=== PATIENT | female | born 1950 | race Caucasian/White ===

== ENCOUNTER 2022-04-13 13:34 | Outpatient (CLI) | payer MEDICARE, OTHER, SELFPAY ==
--- NOTE | 2022-04-15 09:21 | WPDPFTINT ---
PFT Procedure Performed PFT Procedure Performed Plethysmography (Lung Vol) Diffusing Cap (DLCO) Flow Vol Loop Spirometry w/o Bronchodil PFT Interpretation Lung volumes were measured with the body plethysmography method. The elevated FRC and RV are indicative of air trapping. The elevated total lung capacity is indicative of lung hyperinflation. Spirometry showed severely reduced expiratory flow rates and a diminished FEV1 to FVC ratio of 34%, consistent with obstructive airway disease. No post bronchodilator study was carried out. Lung diffusion capacity is severely reduced at 16% predicted. The flow volume loop is consistent with very severe emphysema. Impression: Very severe obstructive airway disease with evidence of air trapping and lung hyperinflation. Severely reduced lung diffusion capacity.
== END 2022-04-13 13:35 | disposition home or self-care (01) ==
LOC: ANHPFT 13:40
PROVIDERS: PCP Family Medicine; Visit Provider Nurse Practitioner Adult Health
DX: I27.20 Pulmonary hypertension, unspecified (principal); J44.9 Chronic obstructive pulmonary disease, unspecified; R94.2 Abnormal results of pulmonary function studies
CPT/HCPCS: 94375; 94726; 94729